=== PATIENT | female | born 1990 | race Two or more races ===

== ENCOUNTER → 2018-12-06 16:08 | Outpatient (CLI) | payer OTHER | END | disposition home or self-care (01) | LOC: LAB 16:08 | DX: Z34.00 Encounter for supervision of normal first pregnancy, unspecified trimester (principal) ==

== ENCOUNTER → 2018-12-06 | Outpatient (CLI) | payer OTHER | END | disposition home or self-care (01) | LOC: PRENATAL 13:25 | DX: O26.851 Spotting complicating pregnancy, first trimester (principal) ==

== ENCOUNTER → 2019-01-03 | Outpatient (CLI) | payer OTHER | END | disposition home or self-care (01) | LOC: PRENATAL 08:00 | DX: O28.3 Abnormal ultrasonic finding on antenatal screening of mother (principal); O35.3XX0 Maternal care for (suspected) damage to fetus from viral disease in mother, not applicable or unspecified ==

== ENCOUNTER → 2019-03-30 | Outpatient (CLI) | payer OTHER | END | disposition home or self-care (01) | LOC: PRENATAL 13:30 | DX: O26.843 Uterine size-date discrepancy, third trimester (principal); O28.3 Abnormal ultrasonic finding on antenatal screening of mother ==

== ENCOUNTER 2019-05-22 11:50 | Inpatient (IN) | payer OTHER ==
[~2019-05-22] VITALS: Ht 154.9 cm; Wt 76.2 kg
[2019-06-05] MEDS ORDERED: PRENATAL 19 TA1 EAC1 PO (12:55)
[2019-06-05] MEDS ORDERED: VITAMIN D400 UNI2 PO (12:55)
== END 2019-06-07 19:08 | disposition home or self-care (01) | DRG 806 ==
LOC: OB/GYN 05-26 11:07 → LDR 06-05 06:56 → OB/GYN 06-06 20:19
PROVIDERS: ADMIT Obstetrics & Gynecology
PROC: 10E0XZZ Delivery of Products of Conception, External Approach (ICD-10-PCS; principal; 2019-06-05)
PROC: 10907ZC Drainage of Amniotic Fluid, Therapeutic from Products of Conception, Via Natural or Artificial Opening (ICD-10-PCS; 2019-06-05)
PROC: 3E0P7VZ Introduction of Hormone into Female Reproductive, Via Natural or Artificial Opening (ICD-10-PCS; 2019-06-05)
PROC: 3E033VJ Introduction of Other Hormone into Peripheral Vein, Percutaneous Approach (ICD-10-PCS; 2019-06-05)
PROC: 4A1HXCZ Monitoring of Products of Conception, Cardiac Rate, External Approach (ICD-10-PCS; 2019-06-05)
PROC: 30233N1 Transfusion of Nonautologous Red Blood Cells into Peripheral Vein, Percutaneous Approach (ICD-10-PCS; 2019-06-06)
DX: O80 Encounter for full-term uncomplicated delivery (principal); D62 Acute posthemorrhagic anemia; Z37.0 Single live birth; Z3A.40 40 weeks gestation of pregnancy

== ENCOUNTER 2019-06-02 16:44 | Outpatient (CLI) | payer OTHER | END 2019-06-02 21:07 | disposition home or self-care (01) | LOC: NST 16:44 | DX: Z34.83 Encounter for supervision of other normal pregnancy, third trimester (principal) ==

== ENCOUNTER 2022-04-10 10:48 | Emergency (ER) | payer OTHER ==
[~2022-04-10] VITALS: Ht 154.9 cm; Wt 64.0 kg
[~2022-04-10 10:48] MED LIST: PRENATAL 19 TA1 EAC1 PO; VITAMIN D400 UNI2 PO
== END 2022-04-10 17:15 | disposition home or self-care (01) ==
LOC: ER 10:48
DX: O20.9 Hemorrhage in early pregnancy, unspecified (principal); Z3A.01 Less than 8 weeks gestation of pregnancy

== ENCOUNTER 2022-11-20 13:11 | Inpatient (IN) | payer OTHER ==
[~2022-11-20] VITALS: Ht 154.9 cm; Wt 76.2 kg
[2022-12-09] MEDS ORDERED: PRENATAL TABLE1 EAC1 PO (11:37)
== END 2022-12-11 13:35 | disposition home or self-care (01) | DRG 807 ==
LOC: OB/GYN 12-09 06:52 → LDR 12-09 06:52 → OB/GYN 12-09 20:03
PROVIDERS: ADMIT Obstetrics & Gynecology; ATTEND Obstetrics & Gynecology
PROC: 10E0XZZ Delivery of Products of Conception, External Approach (ICD-10-PCS; principal; 2022-12-09)
PROC: 4A1HXCZ Monitoring of Products of Conception, Cardiac Rate, External Approach (ICD-10-PCS; 2022-12-09)
DX: O99.824 Streptococcus B carrier state complicating childbirth (principal); Z37.0 Single live birth; Z3A.39 39 weeks gestation of pregnancy; Z20.822 Contact with and (suspected) exposure to COVID-19